=== PATIENT | male | born 1995 | race Caucasian/White ===

== ENCOUNTER → 2016-10-13 | Outpatient (CLI) | payer BC ==
--- NOTE | 2016-10-13 14:37 | MAMMOGRAPHY REPORT ---
MALE BILATERAL DIGITAL DIAGNOSTIC MAMMOGRAM WITH CAD AND TARGETED BILATERAL ULTRASOUND: 10/13/2016 CLINICAL HISTORY: 21-year-old male with a one-month history of a lump in the subareolar left breast. She reports it increasing in size and increasing and tenderness over the past month. No skin isaac ges or nipple discharge. No family history of breast cancer. TECHNIQUE: Bilateral CC and MLO views of the breasts were obtained. Current study was also evaluat ed with a Computer Aided Detection (CAD) system. COMPARISON: No prior exams were available for comparison. BREAST COMPOSITION: The breast parenchyma is nearly entirely fat. FINDINGS: A triangular skin palpable marker overlies the areola of the left breast, denoting the pal pable lump which was pointed out by the patient. There is asymmetric breast tissue development in t he left greater than right breast. No obvious suspicious mass, architectural distortion or cluster of microcalcifications. Targeted ultrasound was performed in the area of concern pointed out by the patient, within the 12:0 0 periareolar and retroareolar left breast and also in the right retroareolar breast for comparison purposes. There is a hypoechoic amount of breast tissue in the subareolar left breast, correlating with the palpable mass that is approximately 2 x 1 cm based on palpation. There is no evidence of a n underlying suspicious solid or cystic mass in the area of concern. No significant breast tissue d evelopment is seen in the right subareolar breast. IMPRESSION: ACR BI-RADS CATEGORY 2: BENIGN, TARGETED ULTRASOUND ACR BI-RADS CATEGORY 2: BENIGN There is asymmetric left gynecomastia, correlating with the palpable lump and tenderness pointed out by the patient. Clinical follow-up is recommended as to possible underlying cause. There is no ma mmographic or targeted sonographic evidence of malignancy. These results and recommendations were discussed with the patient at the time of the exam. Approximately 10% of breast cancers are not detected with mammography. A negative mammographic repor t should not delay biopsy if a clinically suggestive mass is present. Angie Esocbar M.D. ay/:10/13/2016 11:26:37 Traffic Survey Technician: Telma GALEAS)(Junie), [facility] letter sent: Normal /2 BI-RADS Code: ACR BI-RADS Category 2: Benign Ultrasound BI-RADS: ACR BI-RADS Category 2: Benign
== END | disposition home or self-care (01) ==
LOC: C.MAMM 09:56
PROVIDERS: ATTEND Family Medicine
DX: R92.8 Other abnormal and inconclusive findings on diagnostic imaging of breast (principal); N63 Unspecified lump in breast

== ENCOUNTER → 2016-10-21 | Outpatient (CLI) | payer BC ==
[2016-10-21 13:41] LABS: TESTOSTERONE,TOTAL 472.7 ng/dl
== END | disposition home or self-care (01) ==
LOC: C.LABMFLN 09:22
PROVIDERS: ATTEND Family Medicine
DX: N62 Hypertrophy of breast (principal)